=== PATIENT | female | born 1990 | race Caucasian/White ===

== ENCOUNTER 2018-08-17 11:50 | Outpatient (CLI) | payer OTHER, MEDICAID, SELFPAY ==
[2018-08-17 12:38] LABS: HCT 36.3 % (36.0-46.0); HGB 12.2 g/dL (12.0-15.5); Mean Corp. HGB Concentration 33.6 g/dL (32.0-36.0); Mean Corpuscular Hemoglobin 29.8 pg (27.0-33.0); Mean Corpuscular Volume 88.5 fL (80-95); Mean Platelet Volume 10.6 fL (8.0-11.0); Platelet Count 240 x1000/uL (130-400); White Blood Cell Count 5.27 k/cumm (4.4-10.8)
[2018-08-17 13:20] LABS: Anion Gap 9.4 mmol/L (3-11); BUN 15 mg/dL (7-18); CO2 24.6 mmol/L (21.0-32.0); CREATININE 0.58 mg/dL (0.55-1.02); Calcium 8.4 mg/dL (8.5-10.1); Chloride 105 mmol/L (98-107); Glucose 89 mg/dL (70-100); Potassium 4.3 mmol/L (3.5-5.1); Sodium 139 mmol/L (136-145)
== END 2018-08-17 12:10 ==
PROVIDERS: PCP Family Medicine; Visit Provider Obstetrics & Gynecology Gynecology
DX: Z30.2 Encounter for sterilization (principal); Z01.818 Encounter for other preprocedural examination
CPT/HCPCS: 36415; 80048; 85027; 86850; 86900; 86901

== ENCOUNTER 2018-08-19 07:52 | Day surgery (SDC) | payer OTHER, MEDICAID, SELFPAY ==
[2018-08-12 15:25] VITALS: BP 109/64; PULSE 72; RESP 16; TEMP 36.9; O2SAT 100
--- NOTE | 2018-08-19 00:01 | W.PM.HP.N ---
Date of service: 08/18/18 Time of Service: 17:01 Assessment and Plan (1) Request for sterilization: Current visit: Yes Status: Acute Preoperative history and physical completed the patient was counseled regarding risks and benefits of the permanent sterilization including the risk of regret. She was counseled regarding trocar placement in the risk of injury to bowel bladder and blood vessels with entry into the abdomen. I recommended that she not work for 2-3 days after the procedure. She is aware that she will have discomfort but has declined any narcotic prescription. Informed consent was obtained of her questions were answered she will be n.p.o. after midnight History of Present Illness Chief Complaint: Patient is a 28-year-old female who desires permanent sterilization Narrative: Patient was last counsel[facility] regarding [facility] she had previously been counseled a year earlier. During post counseling episodes the patient stated that she is 100% sure she does not want any more children even if her life circumstances were to change we reviewed the risks and benefits of permanent sterilization versus long-acting reversible contraception. I discussed the theoretical benefits of a risk reducing salpingectomy and the postop restrictions as far as activity and weight restrictions. Review of Systems Constitutional Reports system reviewed and no additional complaints, except as docu Cardiovascular Reports system reviewed and no additional complaints, except as docu Respiratory Reports system reviewed and no additional complaints, except as docu Gastrointestinal Reports system reviewed and no additional complaints, except as docu Genitourinary Reports system reviewed and no additional complaints, except as docu Musculoskeletal Reports system reviewed and no additional complaints, except as docu Neurologic Reports system reviewed and no additional complaints, except as docu Psychiatric Reports system reviewed and no additional complaints, except as docu PFSH Medical History Atypical squamous cells of undetermined significance (ASCUS) on Papanicolaou smear of cervix Social History adopted: No household members: significant other number of children: 2 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[employer] Smoking/Tobacco Use Status: Former Tobacco Use alcohol intake: never substance use type: does not use seatbelt use: always Female Reproductive History Menstrual control method: condoms Total pregnancies: 2 Full term: 2 Premature: 0 Ab induced: 0 Ab spontaneous: 0 Ectopics: 0 Multiple births: 0 Meds Home Medications Medication Instructions Recorded Confirmed Type wxsgysmu-vajt-LY-calcium-mins 1 ea PO DAILY 05/06/17 08/18/18 History [Women's Daily Caplet] Allergies Allergy/AdvReac Type Severity Reaction Status Date / Time No Known Allergies Allergy Unverified 08/18/18 11:47 Exam Const General: cooperative, healthy appearing and comfortable Nutritional Appearance: average body habitus Orientation: alert, awake and oriented x3 Neck Neck: normal visual inspection Thyroid: thyroid normal Resp Effort & Inspection: normal respiratory effort Auscultation: clear to auscultation bilaterally Cardio Jugular venous pressure: no JVD Palpation: normal PMI Rate: regular rate Rhythm: regular rhythm Heart Sounds: S1 normal and S2 normal General: deferred Back/Spine/Pelvis Back: no CVA tenderness Neuro General: alert, awake, oriented x3 and oriented Cognition: normal cognition DTR's: Rt Patellar: 1+ and Lt Patellar: 1+ Extrem General: normal to inspection and no clubbing, cyanosis or edema Psych Appearance: grossly normal and well kempt Results Labs Patient had labs obtained yesterday
--- NOTE | 2018-08-19 00:13 | HPE_ITS ---
Date of service: 08/18/18 Time of Service: 17:01 Assessment and Plan (1) Request for sterilization: Current visit: Yes Status: Acute Preoperative history and physical completed the patient was counseled regarding risks and benefits of the permanent sterilization including the risk of regret. She was counseled regarding trocar placement in the risk of injury to bowel bladder and blood vessels with entry into the abdomen. I recommended that she not work for 2-3 days after the procedure. She is aware that she will have discomfort but has declined any narcotic prescription. Informed consent was obtained of her questions were answered she will be n.p.o. after midnight History of Present Illness Chief Complaint: Patient is a 28-year-old female who desires permanent sterilization Narrative: Patient was last counsel[facility] regarding [facility]ilization on [facility] she had previously been counseled a year earlier. During post counseling episodes the patient stated that she is 100% sure she does not want any more children even if her life circumstances were to change we reviewed the risks and benefits of permanent sterilization versus long -acting reversible contraception. I discussed the theoretical benefits of a risk reducing salpingectomy and the postop restrictions as far as activity and weight restrictions. Review of Systems Constitutional Reports system reviewed and no additional complaints, except as docu Cardiovascular Reports system reviewed and no additional complaints, except as docu Respiratory Reports system reviewed and no additional complaints, except as docu Gastrointestinal Reports system reviewed and no additional complaints, except as docu Genitourinary Reports system reviewed and no additional complaints, except as docu Musculoskeletal Reports system reviewed and no additional complaints, except as docu Neurologic Reports system reviewed and no additional complaints, except as docu Psychiatric Reports system reviewed and no additional complaints, except as docu PFSH Medical History Atypical squamous cells of undetermined significance (ASCUS) on Papanicolaou smear of cervix Social History adopted: No household members: significant other number of children: 2 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[employer] Smoking/Tobacco Use Status: Former Tobacco Use alcohol intake: never substance use type: does not use seatbelt use: always Female Reproductive History Menstrual control method: condoms Total pregnancies: 2 Full term: 2 Premature: 0 Ab induced: 0 Ab spontaneous: 0 Ectopics: 0 Multiple births: 0 Meds Home Medications Medication Instructions Recorded Confirmed Type xfrbjkyb-ejbr-YW-calcium-mins 1 ea PO DAILY 05/06/17 08/18/18 History [Women's Daily Caplet] Allergies Allergy/AdvReac Type Severity Reaction Status Date / Time No Known Allergies Allergy Unverified 08/18/18 11:47 Exam Const General: cooperative, healthy appearing and comfortable Nutritional Appearance: average body habitus Orientation: alert, awake and oriented x3 Neck Neck: normal visual inspection Thyroid: thyroid normal Resp Effort & Inspection: normal respiratory effort Auscultation: clear to auscultation bilaterally Cardio Jugular venous pressure: no JVD Palpation: normal PMI Rate: regular rate Rhythm: regular rhythm Heart Sounds: S1 normal and S2 normal General: deferred Back/Spine/Pelvis Back: no CVA tenderness Neuro General: alert, awake, oriented x3 and oriented Cognition: normal cognition DTR's: Rt Patellar: 1+ and Lt Patellar: 1+ Extrem General: normal to inspection and no clubbing, cyanosis or edema Psych Appearance: grossly normal and well kempt Results Labs Patient had labs obtained yesterday
[2018-08-19 08:14] VITALS: BP 114/78; PULSE 92; RESP 16; TEMP 36.8; O2SAT 99
[2018-08-19] MEDS: Lactated Ringers 1,000 ML 125 ML IV ×2 (08:30→10:55)
--- NOTE | 2018-08-19 10:26 | FALL_PTH ---
PATIENT: Ketty Harrington LOC: [facility] U#:[id number] AGE/SX: 28/F ROOM: RE08/19/[address]: Susy Ng : 1990 BED: DIS: 08/19/2018 SPEC #: [id number] RECD: 08/19/18 12:24 STATUS: JONH [place] #: [id number] TASNEEM: 08/19/18 10:[address]: Susy Ng DEPT: Surgical Specimen RECD BY: Kenrick Elliott ENTERED: 08/19/18 12:25 SP TYPE: Fall OTHR DR: Mari Mancia MD, DC Tissues: 1 - FALLOPIAN TUBE (STERILIZATION) 2 - FALLOPIAN TUBE (STERILIZATION) Procedures: GROSS AND MICRO LEVEL 2 Comments: [id number]
[2018-08-19] MEDS: Bupivacaine 0.25% Pres-Free 30 ML VIAL (11:13)
[2018-08-19 11:25] VITALS: BP 117/70; PULSE 84; RESP 19; TEMP 36.4; O2SAT 99
[2018-08-19 11:30] VITALS: BP 115/60; PULSE 83; RESP 18; TEMP 36.4; O2SAT 99
[2018-08-19 11:35] VITALS: BP 120/75; PULSE 82; RESP 15; TEMP 36.6; O2SAT 98
--- NOTE | 2018-08-19 11:46 | W.PM.DSUDISC ---
Discharge Plan Disposition Patient Disposition: HOME Condition: Fair Discharge Details Attending Provider: Susy Ng Primary Care Provider: Mari Mancia Home Meds and New Rx's Prescriptions: No Action rpcuivqa-ibmy-MH-calcium-mins [Women's Daily Caplet] 1 EACH tablet 1 ea PO DAILY RF: 0 Discharge Instructions Additional Instructions: Postoperative Instructions Outpatient Gynecology Because there will be medication in your system for the next 24 hours, you may feel a little sleepy. Your coordination will be affected. Therefore: Do not drive or operate dangerous equipment for 24 hours. Do not drink alcoholic beverages for 24 hours (not even beer). Plan to go home and rest for the day. Rest, drink liquids and eat lightly for the rest of the day. Do not plan to return to normal activity for two full days. Some women require 5-7 days to feel 100 percent. Arrange to have someone stay with you for the rest of the day. You should arrange for salesperson children's shoes on the day of surgery. If you have incisions, remove the bandage in 24 hours. You may have a sore throat or hoarseness after surgery. This usually lasts a short time and is relieved by drinking liquids. If hoarseness persists longer than 24 hours, please contact the anesthesia department by calling the hospital. Take Tylenol or Advil for cramping. If that does not work, you may be too active so try cutting back on your activities. You may use up to 3 Advil every (4) four to (6) six hours. Use the prescription medication in between doses of Advil if needed. You should be able to urinate as usual following the surgery. Any form of surgery can cause your menstrual cycle to become irregular. You may spot for a week after surgery and your next period will start in (4) four to (6) six weeks. You need a follow-up appointment 2weeks following surgery. Please call the office for an appointment. If you had a Laparascopic procedure there are no restrictions on tampons or tub baths. Avoid intercourse for 2 weeks. You may take a shower or bath. Please report any of the following conditions or any questions regarding your condition to your doctor and the Day Surgery Unit: Increased drainage or foul smelling drainage. Temperature of 101 F or above. Excessive pain. If you are unable to contact your doctor, contact the hospital at [phone]. Continue all your regular medications unless directed otherwise. Revised 05/07/11 Activity:: Activity as Tolerated Remove Dressings/Wound Care:: 24 hours Diet:: as tolerated. Discharge Orders Discharge Orders: Discharge Order (Routine); Ordered 08/19/18 Ordered By: Susy Ng DS: Diagnosis Discharge Diagnosis (1) Request for sterilization: Status: Acute
[2018-08-19 11:49] VITALS: BP 95/65; PULSE 77; RESP 15; TEMP 36.6; O2SAT 99
--- NOTE | 2018-08-19 11:50 | PDOC.DSDIS_ITS ---
Discharge Plan Disposition Patient Disposition: HOME Condition: Fair Discharge Details Attending Provider: Susy Ng Primary Care Provider: Mari Mancia Home Meds and New Rx's Prescriptions: No Action chbxpvny-kxzx-MI-calcium-mins [Women's Daily Caplet] 1 EACH tablet 1 ea PO DAILY RF: 0 Discharge Instructions Additional Instructions: Postoperative Instructions Outpatient Gynecology * Because there will be medication in your system for the next 24 hours, you may feel a little sleepy. Your coordination will be affected. Therefore: Do not drive or operate dangerous equipment for 24 hours. Do not drink alcoholic beverages for 24 hours (not even beer). Plan to go home and rest for the day. * Rest, drink liquids and eat lightly for the rest of the day. Do not plan to return to normal activity for two full days. Some women require 5-7 days to feel 100 percent. * Arrange to have someone stay with you for the rest of the day. You should arrange for child development specialist on the day of surgery. * If you have incisions, remove the bandage in 24 hours. * You may have a sore throat or hoarseness after surgery. This usually lasts a short time and is relieved by drinking liquids. If hoarseness persists longer than 24 hours, please contact the anesthesia department by calling the hospital. * Take Tylenol or Advil for cramping. If that does not work, you may be too active so try cutting back on your activities. You may use up to 3 Advil every (4) four to (6) six hours. Use the prescription medication in between doses of Advil if needed. * You should be able to urinate as usual following the surgery. * Any form of surgery can cause your menstrual cycle to become irregular. You may spot for a week after surgery and your next period will start in (4) four to (6) six weeks. * You need a follow-up appointment 2weeks following surgery. Please call the office for an appointment. * If you had a Laparascopic procedure there are no restrictions on tampons or tub baths. Avoid intercourse for 2 weeks. You may take a shower or bath. * Please report any of the following conditions or any questions regarding your condition to your doctor and the Day Surgery Unit: Increased drainage or foul smelling drainage. Temperature of 101 F or above. Excessive pain. * If you are unable to contact your doctor, contact the hospital at [phone]. * Continue all your regular medications unless directed otherwise. Revised 05/07/11 Activity:: Activity as Tolerated Remove Dressings/Wound Care:: 24 hours Diet:: as tolerated. Discharge Orders Discharge Orders: Discharge Order (Routine); Ordered 08/19/18 Ordered By: Susy Ng DS: Diagnosis Discharge Diagnosis (1) Request for sterilization: Status: Acute
--- NOTE | 2018-08-19 21:07 | W.PM.OP ---
Date of service: 08/19/18 Time of Service: 21:08 Operative Note DATE OF PROCEDURE: 08/19/18 PRE-OP DIAGNOSIS: Multiparity desiring permanent sterilization POST-OP DIAGNOSIS: same PROCEDURE: Laparoscopic bilateral salpingectomy SURGEON: Susy Ng LEAD MANUFACTURING TECHNICIAN: Elidia Al ANESTHESIA: GETA ESTIMATED BLOOD LOSS: 0 PATHOLOGY: other TOURNIQUET TIME: 0 COMPLICATIONS: None Patient was transported to: PACU Patient's condition: stable Implants: None Indications: 28-year-old multiparous female who desires permanent sterilization she has been counseled regarding alternatives and declined LARC. Findings: Normal fallopian tubes and ovaries and cul-de-sac. Procedure Description: Patient was taken to the operating room she is placed in the dorsal supine position and general endotracheal anesthesia was administered without difficulty. Prepped and draped in the usual sterile fashion. The umbilical fold was infiltrated with 1 cc of 0.25% Marcaine and a vertical skin incision was made in the umbilical fold and the underlying subcutaneous tissue was dissected using blunt technique to the level of the rectus fascia. Rectus fascia was then tented up in the midline incised with a curved Zayas scissors and the 12 mm trocar and sleeve was inserted through the incision and attached to carbon dioxide is the distention medium. However on inspection of the laparoscope the peritoneum was still visible. The 12 mm trocar and sleeve were removed the peritoneal incision widened and on repeat insertion of the trocar and sleeve intra-abdominal placement was confirmed. Once pneumoperitoneum was achieved the patient was placed in Trendelenburg under direct visualization two 5 mm ports were placed in the right and left lower quadrants respectively infiltration of the skin with 0.25% Marcaine prior to skin incision. A LigaSure bipolar cautery device was then used to clamp cauterized and cut the distal right fallopian tube and its attachments at the mesosalpinx to the level of the uterine cornua. It was then cut across the uterine cornua and the fallopian tube was delivered through the 5 mm port site. A similar technique was carried out on the left fallopian tube and the entire fallopian tube was freed from its attachments to the mesosalpinx and amputated at the uterine cornua. It too was delivered through the 5 mm port site. Both pedicles were noted be hemostatic the left fallopian tube showed a small cyst. It was drained prior to the tube being removed through the 5 mm port site. Under direct visualization both 5 mm ports were removed the pneumoperitoneum was reduced and the 12 mm umbilical trocar was removed. Rectus fascia was reapproximated with interrupted sutures of 0 Vicryl. The umbilical port site skin was closed with subcutaneous closure using 4-0 Vicryl. The 5 mm trocar sites were closed with skin glue. The patient was awakened extubated and transported to recovery area in stable condition. All sponge lap and needle counts correct ?2. She had SCDs in place during the entire case.
== END 2018-08-19 12:45 | disposition home or self-care (01) ==
PROVIDERS: PCP Family Medicine; Visit Provider Obstetrics & Gynecology Gynecology
PROC: (CPT 58661; principal; 2018-08-19 09:00)
DX: Z30.2 Encounter for sterilization (principal)
CPT/HCPCS: 58661; NC; 88302; J0131; J1100; J1885; J2405

== ENCOUNTER 2020-09-15 09:44 | Outpatient (CLI) | payer BC, MEDICAID, SELFPAY ==
[2020-09-18 00:05] LABS: Patient Race White; SARS-CoV-2 RNA Undetected (Undetected); SARS-CoV-2 Specimen Source Nasopharynx
== END 2020-09-15 10:04 ==
PROVIDERS: PCP Family Medicine; Visit Provider Family Medicine
DX: Z20.828 Contact with and (suspected) exposure to other viral communicable diseases (principal)
CPT/HCPCS: U0003

== ENCOUNTER 2021-04-09 18:05 | Outpatient (REF) | payer BC, MEDICAID, SELFPAY ==
--- NOTE | 2021-04-09 15:45 | PAPFT_PTH ---
PATIENT: Ketty Harrington LOC: [facility] U#:[id number] AGE/SX: 31/F ROOM: RE04/09/[address]: Mari Mancia MD, DC : 1990 BED: DIS: 04/09/2021 SPEC #: [id number] RECD: 04/10/21 12:44 STATUS: JONH REAkua #: [id number] TASNEEM: 04/09/21 15:[address]: Mari Mancia DEPT: [facility] Cytology RECD BY: Una Jack Tissues: 1 - CX/ENDOCX FOR PAP SMEARS Procedures: PAP THIN PREP/UVM Screening HPV DNA PROBE Comments: [id number]
== END 2021-04-09 18:06 | disposition home or self-care (01) ==
LOC: LBN 18:05
PROVIDERS: PCP Family Medicine; Visit Provider Family Medicine
DX: Z12.4 Encounter for screening for malignant neoplasm of cervix (principal); Z11.51 Encounter for screening for human papillomavirus (HPV)
CPT/HCPCS: 88142; 87624

== ENCOUNTER 2021-06-27 08:56 | Outpatient (CLI) | payer BC, MEDICAID, SELFPAY ==
[2021-06-27 13:09] LABS: TSH (W/Ref FT4) 0.59 uIU/mL (0.36-3.74)
== END 2021-06-27 08:57 | disposition home or self-care (01) ==
LOC: LBO 09:03
PROVIDERS: PCP Family Medicine; Visit Provider Family Medicine
DX: Z00.00 Encounter for general adult medical examination without abnormal findings (principal); E04.1 Nontoxic single thyroid nodule
CPT/HCPCS: 36415; 84443

== ENCOUNTER 2021-09-03 01:36 | Outpatient (CLI) | payer BC, MEDICAID, SELFPAY ==
--- NOTE | 2021-09-03 07:00 | DI.US_ITS ---
Exam(s) US NEEDLE LOCAL OTHER WO RAD EXAM: US NEEDLE LOCAL OTHER WO RAD CLINICAL HISTORY: right TR 4 nodule,THYROID NODULE,ULTRASOUND GUIDED BX TECHNIQUE: Ultrasound performed using standard protocol. COMPARISON: US US THYROID from 06/13/2021 US US THYROID from 06/13/2021 FINDINGS: Ultrasound was provided for Dr. Perdomo for guidance with performing FNA of a right-sided thyroid nodu le. Please see procedure note for details. DATA REPOSITORY:
--- NOTE | 2021-09-03 10:15 | PAPNONF_PTH ---
PATIENT: Ketty Harrington LOC: [facility] U#:[id number] AGE/SX: 31/F ROOM: RE09/03/[address]: Magdiel Perdomo MD : 1990 BED: DIS: 09/03/2021 SPEC #: [id number] RECD: 09/03/21 13:05 STATUS: JONH REAkua #: [id number] TASNEEM: 09/03/21 10:[address]: Magdiel Perdomo DEPT: [facility] Cytology RECD BY: Una Jack ENTERED: 09/03/21 13:06 SP TYPE: ENMANUEL BURGER DR: Mari Mancia MD, DC Tissues: 1 - BODY FLUID CYTO-FINE NEEDLE ASPIRATE-UVM Procedures: BODY FLUID CYTO-FINE NEEDLE ASPIRATE-UVM Comments: [id number]
--- NOTE | 2021-09-03 10:51 | W.PROCNOTE ---
Procedure Note Date of procedure: 09/03/21 Procedure: Ultrasound-guided FNA, right thyroid lobe nodule, pathology present Surgeon/Proceduralist/Physician: Magdiel Perdomo Procedure Diagnosis: Multinodular thyroid Procedure Indications: Patient with a 1.6 cm TR 4 lesion on the right. Options were explained to the patient regarding further management. She elected to undergo the above procedure. Consent was filled out and signed prior to surgery. Procedure Description: The patient was positioned in a supine position with her neck extended. She was prepped and draped in appropriate fashion. The ultrasound was used to localize the right-sided hypovascular thyroid nodule measuring 1.6 cm in maximal dimensions, and then 1% lidocaine with 1/100,000 epinephrine was injected into the skin and subcutaneous tissues over the nodule. Following this, a 25-gauge needle was carefully introduced and advanced into the thyroid nodule. Multiple passes were made. This was done twice. Specimen was handed off to pathology. Findings were most consistent with a follicular cyst. The second pass was made into the more cellular appearing superior nodule. The wound was inspected for hemostasis, and then the patient was allowed to sit up, and ambulate. Her vital signs remained stable. Specimen was sent to pathology for final diagnostic review. The patient will call with any concerns. She will call if she does not hear back from me within 1 week with regard to pathology. She will otherwise follow-up with me in 6 months time with repeat ultrasound as we discussed.
== END 2021-09-03 01:56 ==
PROVIDERS: PCP Family Medicine; Visit Provider Otolaryngology
DX: E04.2 Nontoxic multinodular goiter (principal)
CPT/HCPCS: 10005; 76942; 88104

== ENCOUNTER 2022-07-09 03:38 | Outpatient (CLI) | payer BC, MEDICAID, SELFPAY ==
[2022-07-09 13:04] LABS: TSH (W/Ref FT4) 0.42 uIU/mL (0.36-3.74)
== END 2022-07-09 03:39 | disposition home or self-care (01) ==
LOC: LOS 03:39
PROVIDERS: PCP Family Medicine; Visit Provider Family Medicine
DX: E04.1 Nontoxic single thyroid nodule (principal); F41.8 Other specified anxiety disorders
CPT/HCPCS: 36415; 84443

== ENCOUNTER 2024-05-24 19:52 | Outpatient (CLI) | payer BC, SELFPAY ==
[2024-05-24 18:29] LABS: HBs Antibody, Quant 42.7 mIU/mL (See Note); Hepatitis B Surface Ab Positive (See Note)
[2024-05-25 10:07] LABS: Varicella IgG Antibody Positive (See Note)
[2024-05-25 10:12] LABS: Measles IgG Antibody Positive (See Note); Mumps Antibody IgG Positive (See Note)
[2024-05-25 10:14] LABS: Rubella IgG Ab (UVM) Positive (See Note)
== END 2024-05-24 19:53 | disposition home or self-care (01) ==
LOC: LBO 19:52
PROVIDERS: PCP Family Medicine; Visit Provider Nurse Practitioner Family
DX: Z01.84 Encounter for antibody response examination (principal); Z02.83 Encounter for blood-alcohol and blood-drug test
CPT/HCPCS: 36415; 86706; 86787; 86735; 86762; 86765

== ENCOUNTER 2025-03-10 12:17 | Emergency (ER) | payer OTHER, SELFPAY ==
[2025-03-10 12:22] VITALS: BP 121/83; PULSE 90; RESP 16; TEMP 36.7; O2SAT 98
--- NOTE | 2025-03-10 12:30 | DI.RAD_ITS ---
Exam(s) XR ANKLE RT COMPLETE XR FOOT RT COMPLETE EXAM: XR ANKLE RT COMPLETE CLINICAL HISTORY: R foot and ankle pain. TECHNIQUE: 2D digital imaging was performed. Three views of the ankle and foot. COMPARISON: CR XR FOOT RT COMPLETE from 03/10/2025 FINDINGS: BONES: No acute fracture is present. No bony destructive lesion is seen. Small plantar calcaneal s pur. JOINTS: The ankle mortise is normally aligned. No significant degenerative changes. SOFT TISSUE: lateral soft tissue swelling. IMPRESSION: Soft tissue swelling. No acute bony abnormalities.. DATA REPOSITORY: RADIATION DOSE DELIVERED:
--- NOTE | 2025-03-10 12:37 | ED.GENADUL_ITS ---
Discharge Plan Disposition Patient Disposition: Home Condition: Stable Discharge Details Clinical Impression: Sprain of right ankle Primary Care Provider: Mari Mancia ED Provider: Javi Jay Home Meds and New Rx's Prescriptions: No Action cetirizine [Zyrtec] 10 mg tablet 10 mg PO DAILY PRN Women's Daily Caplet 1 EACH tablet 1 ea PO DAILY Discharge Instructions Instructions: Ankle Sprain ED Additional Instructions: You were seen in the emergency department for the sprain of your right ankle, there is no fracture seen on x-ray, we did provide an Rom wrap and crutches to help with your inability to weight-bear. Please rest, ice, compress and elevate the ankle often. Please use therapeutic dosing of Tylenol (acetamenophen) & Advil (ibuprofen) in an alternating fashion as follows: Take 1000mg of Tylenol every 6 hours without missing doses- that is 4 times per day. Walker in between the Tylenol dosings, take 400-600mg of Advil also on a 6 hour schedule, that is also 4 times per day. The daily maximum dosing of Tylenol is 4000mg, and the daily maximum dosing of Advil is 2400mg. This is safe to do for weeks. Please note that some common cold medications & prescription pain medications may contain acetamenophen and you need to read OTC drug labels and factor that in to maximum daily dosings. Follow-up with orthopedics for failure to improve in 2 weeks. Referrals: Mari Mancia MD, [place] [Primary Care Provider] - Discharge Data Discharge Date/Time-TO BE ENTERED AT DEPARTURE: 03/10/25 14:38 HPI General Date/Time Provider Initiated Documentation: 03/10/25 12:35 . 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 Quality described as felt a crunch, no radiation to bruising, knee pain, fall with other trauma, endorses painful weight-bearing at lateral ankle and midfoot. Severity is described as 6/10. Palliating factors include nothing specific attempted. Provoking factors include nothing specific. Patient not anticoagulated. Related Data Home Medications ?Medication ?Instructions ?Recorded ?Confirmed multivitamin-iron 27 mg-folic acid 1 ea PO DAILY 05/06/17 03/10/25 400 mcg-calcium and minerals tablet (Women's Daily Caplet) cetirizine 10 mg tablet (Zyrtec) 10 mg PO DAILY PRN 04/09/21 03/10/25 Allergies Allergy/AdvReac Type Severity Reaction Status Date / Time seasonal Allergy sneezing Uncoded 03/10/25 12:29 General Stated Complaint: Orthopedic JENNIFER: 4 Review of Systems All systems reviewed & are unremarkable except as noted in HPI and below Exam Narrative Exam Narrative: GENERAL APPEARANCE: Well-nourished, non-toxic, awake and alert, atraumatic, no acute distress. SKIN: Warm, pink, dry, intact, without rashes/lesions/ulcerations. HEAD: Normocephalic, atraumatic, normal hair distribution for gender/age. EYES: Normal conjunctiva, no exudates on lids/lashes. ENT: Nares patent, no circumoral cyanosis, no facial swelling NECK: Supple, trachea midline, painless cervical ROM. LUNGS/CHEST: Non-labored respirations, normal A/P diameter, symmetrical expansion, no chest wall deformity HEART (CV/PV): No peripheral edema, no JVD. ABDOMEN: Soft, non-distended, no guarding. MSK: Normal ROM, no swelling/deformity to bilateral UEs or LEs, moving all extremities without weakness, no cyanosis, spine midline without tenderness, normal curvature, R ankle tenderness without ecchymosis, R lateral ankle swelling without deformity, R dorsalis pedis pulse 2+, no fibular head tenderness NEURO: Mental Status AAOx4 - alert to person, place, time, events No facial droop, no forehead involvement. Motor: No focal weakness - strength 5/5 in bilateral UEs and LEs, proximal and distal, symmetric. Sensory: sensation intact to light touch globally. Gait antalgic. PSYCH: euthymic, cooperative, pleasant, appropriate speech Course Vital Signs Vital signs: Vital Signs Temperature 36.7 C 03/10/25 12:22 Pulse 90 03/10/25 12:22 Respiratory Rate 16 03/10/25 12:22 Blood Pressure 121/83 03/10/25 12:22 Pulse Oximetry 98 03/10/25 12:22 Temperature 36.7 C 03/10/25 12:22 Pulse 90 03/10/25 12:22 Respiratory Rate 16 03/10/25 12:22 Blood Pressure 121/83 03/10/25 12:22 Blood Pressure Position Sitting 03/10/25 12:22 Pulse Oximetry 98 03/10/25 12:22 Oxygen Delivery Method Room Air 03/10/25 12:22 Oxygen Flow Rate 0 03/10/25 12:22 Pain Level 6 03/10/25 12:22 Medical Decision Making This dictation utilizes [id number] dictation software and may contain unedited grammatical errors. 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 Quality described as felt a crunch, no radiation to bruising, knee pain, fall with other trauma, endorses painful weight-bearing at lateral ankle and midfoot. Severity is described as 6/10. Palliating factors include nothing specific attempted. Patient is R-foot dominant. Provoking factors include nothing specific. Patients' medical history: Noncontributory. Family and social history: Noncontributory, works at school. Pertinent exam findings / vital signs include right ankle tenderness and swelling, R dorsalis pedis pulse 2+, no ecchymosis, no fibular head tenderness. Differential / pathologies of concern include sprain, fracture. Diagnostic studies of: -XR R Foot & Ankle - no acute fracture seen. Interventions of: -rom wrap. ED Course/Assessment/Plan: 34-year-old otherwise healthy female presents with right ankle sprain, x-rays negative for fracture, Rom wrap to her ankle, offered crutches, recommend RICE therapy and therapeutic dosing Tylenol and ibuprofen, follow-up with orthopedics if pain persist after 2 weeks. Findings not consistent with fracture or neurovascular compromise. Disposition of sprain of right ankle. Patient verbalized understanding of the plan and return to ED criteria and engaged in shared decision making. Medical Records Medical records reviewed: Yes I reviewed the patient's medical records. Imaging Data Radiologic Study: Attestation: I personally reviewed and interpreted this imaging study as follows: Imaging: X-Ray Radiologist's impression: EXAM: XR ANKLE RT COMPLETE CLINICAL HISTORY: R foot and ankle pain. TECHNIQUE: 2D digital imaging was performed. Three views of the ankle and foot. COMPARISON: CR XR FOOT RT COMPLETE from 03/10/2025 FINDINGS: BONES: No acute fracture is present. No bony destructive lesion is seen. Small plantar calcaneal spur. JOINTS: The ankle mortise is normally aligned. No significant degenerative changes. SOFT TISSUE: lateral soft tissue swelling. IMPRESSION: Soft tissue swelling. No acute bony abnormalities.. Quality:SDOH Health Related Social Needs: No Data to Display PFSH All Active Problems (Updated 03/10/25 @ 14:08 by SOBEIDA Ward) Sprain of right ankle (Acute) Employment-related drug testing, encounter for (Acute) Multinodular thyroid (Acute) Thyroid nodule greater than or equal to 1.5 cm in diameter incidentally noted on imaging study (Acute) left and right thyroid Nodule of left lobe of thyroid gland (Acute) bx 2017 - negative [facility] [place] Surveillance of (intrauterine) contraceptive device (Acute 10/03/14) Encounter for annual physical exam (Acute) Cellulitis (Acute) Anxiety (Chronic) Medical History Atypical squamous cells of undetermined significance (ASCUS) on Papanicolaou smear of cervix 03/2011. NILM since then Encounter for IUD removal 10/03/15 Encounter for visit 02/18/17 Encounter for pre-operative examination History and physical completed. Surgical consent obtained her questions were answered she will be n.p.o. after midnight Encounter for supervision of other normal , first trimester 05/28/16 Encounter for tubal ligation counseling 05/06/17 Hyperthyroidism affecting 07/22/16 Multigravida in third trimester 11/26/16 anemia care following vaginal delivery hemorrhage, delivered Request for sterilization Surveillance of intrauterine contraceptive device 10/03/14 Surgical History Hx of tubal ligation 2018 Social History (Updated 05/23/23 @ 12:02 by Sushma Meyers) Smoking/Tobacco Use Status: Former Tobacco Use tobacco type: cigarettes Quit Date: 12/01/17 Second Hand Exposure: Yes Smoking risk assessment performed?: Yes Alcohol Intake: current Alcohol Intake frequency: a few times a month Alcohol type: beer and wine Drug use: Rarely Substance use type: marijuana Adopted: No Caregiver/Support person: No Household members: spouse and children Housing: house Number of Children: 2 Communication Needs: None Do you need help understanding health information?: Never 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[employer] Pets and animals: Yes Pets and animals: dog(s) Sexually active: Yes Do you think of yourself as: straight/heterosexual Current gender identity: female What is your relationship status?: How often do you talk on the phone with friends or family?: twice per week How often do you get together with friends or relatives?: once per week How often do you attend adventism or adventist services?: decline to answer Do you belong to any clubs or organized social groups?: no Panel score (0-1 are the most socially isolated patients): 2 What type of physical activity do you participate in: walking and other Details: HIIT Routines Duration: 15-30 minutes/day Frequency: 3-4 times per week Ileana/Anabaptism: No preference Special ileana needs: No Seatbelt use: sometimes Helmet use: Yes Helmet use: sometimes Drive intox or ride w/intox seasonal driver: No Do you feel safe in your relationship?: Yes Female Reproductive History Menstrual control method: none History History 2 Para Hx # Term Pregnancies 2 Multiple births 0 Hx # Pregnancies 0 Ectopic pregnancies 0 AB induced Hx Number of Living Children AB spontaneous
--- NOTE | 2025-03-10 14:38 | NUR.NOTE ---
Nursing Note: PT declined POC preg test says she has a salpingoectomy in the past
== END 2025-03-10 14:38 | disposition home or self-care (01) ==
PROVIDERS: Emergency Provider Physician Assistant; PCP Family Medicine
DX: S93.401A Sprain of unspecified ligament of right ankle, initial encounter (principal); X50.9XXA Other and unspecified overexertion or strenuous movements or postures, initial encounter; Y93.89 Activity, other specified; Y92.39 Other specified sports and athletic area as the place of occurrence of the external cause; Y99.0 Civilian activity done for income or pay
CPT/HCPCS: 99283; 73610; 73630